=== PATIENT | female | born 1970 | race Hispanic/Latino ===

== ENCOUNTER 2018-07-07 07:13 | Outpatient (CLI) | payer BC | END 2018-07-07 07:14 | disposition home or self-care (01) | LOC: LAB 07:13 ==

== ENCOUNTER 2018-07-17 07:47 | Outpatient (CLI) | payer BC | END 2018-07-17 07:48 | disposition home or self-care (01) | LOC: RAD 07:47 ==

== ENCOUNTER 2018-08-09 07:35 | Outpatient (CLI) | payer BC | END 2018-08-09 07:36 | disposition home or self-care (01) | LOC: RAD 07:35 ==

== ENCOUNTER 2018-09-21 07:43 | Outpatient (CLI) | payer BC | END 2018-09-21 07:44 | disposition home or self-care (01) | LOC: RAD 07:43 ==

== ENCOUNTER 2018-10-08 14:04 | Emergency (ER) | payer BC ==
[2018-10-08 14:20] VITALS: RESP 18; TEMP 98.4
[2018-10-08] MEDS ORDERED: Oxycodone/Acetaminophen 5/325 mg Tab PO STA (14:53)
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
[2018-10-08 18:00] VITALS: BP 99/50; PULSE 76; O2SAT 99
--- NOTE | 2018-10-09 10:36 | RAD ---
Date of service: 10/08/2018 PROCEDURE: Cervical Spine Radiographs. HISTORY: Pain. COMPARISON: 09/21/2018 TECHNIQUE: Four views obtained. FINDINGS: BONES: Alignment maintained. No fracture. Dens Intact. DISC SPACES: Intradiscal fusion device at C3-4. Bone plugs with anterior plates and screws C4 through C7. Findings are unchanged SOFT TISSUES: Normal. No prevertebral soft tissue swelling. OTHER FINDINGS: None. IMPRESSION: Intradiscal fusion device at C3-4. Bone plugs with anterior plates and screws C4 through C7. Findings are unchanged
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
== END 2018-10-08 18:23 | disposition home or self-care (01) ==
LOC: ED 14:04
DX: S16.1XXA Strain of muscle, fascia and tendon at neck level, initial encounter (principal); S29.012A Strain of muscle and tendon of back wall of thorax, initial encounter; V49.9XXA Car occupant (driver) (passenger) injured in unspecified traffic accident, initial encounter